=== PATIENT | female | born 1995 | race Two or more races ===

== ENCOUNTER 2016-11-10 23:35 | Emergency (ER) | payer OTHER ==
[~2016-11-10] VITALS: Ht 162.6 cm; Wt 44.0 kg
[2016-11-10] MEDS ORDERED: MIRTAZAPINE15 MG ORAL (23:45)
[2016-11-11] MEDS ORDERED: LORazepam 1mg tab ORAL ONE
[2016-11-11 00:27] VITALS: BP 133/86
[2016-11-11 00:49] LABS: BASOPHILS % (AUTO) 1.2 % (0.0-2.0); LYMPHOCYTES % (AUTO) 18.8 % (20.0-45.0); MEAN CORPUSCULAR HEMOGLOBIN 30.4 PG (27.0-31.0); MEAN CORPUSCULAR HGB CONC 34.6 G/DL (32.0-36.0); MEAN CORPUSCULAR VOLUME 88 FL (80-99); MEAN PLATELET VOLUME 7.9 FL (6.5-10.1); NEUTROPHILS % (AUTO) 71.9 % (45.0-75.0); PLATELET COUNT 347 K/UL (150-450); RED BLOOD COUNT 5.44 M/UL (4.20-5.40); RED CELL DISTRIBUTION WIDTH 10.8 % (11.6-14.8); WHITE BLOOD COUNT 11.3 K/UL (4.8-10.8)
[2016-11-11 00:56] LABS: APPEARANCE,URINE SLIGHTLY CLOUDY; KETONES,URINE 3+ (NEGATIVE); LEUKOCYTE ESTERASE ,URINE 1+ (NEGATIVE); NITRITE,URINE NEGATIVE (NEGATIVE); PH,URINE 6 (4.5-8.0); PROTEIN,URINE 2+ (NEGATIVE); UROBILINOGEN,URINE NORMAL MG/DL (0.0-1.0)
[2016-11-11 01:13] LABS: ACETAMINOPHEN 14 ug/mL (10-30); ALANINE AMINOTRANSFERASE 11 U/L (3-33); ALBUMIN/GLOBULIN RATIO 1.5 (1.0-2.7); ALCOHOL < 10 mg/dL; ANION GAP 24 (5-15); ASPARTATE AMINO TRANSFERASE 34 U/L (5-40); CALCIUM 10.2 mg/dL (8.6-10.2); CARBON DIOXIDE 21 mEQ/L (20-30); CHLORIDE 92 mEQ/L (98-107); CREATININE 0.9 mg/dL (0.5-0.9); GLOMERULAR FILTRATION RATE > 60 mL/min (>60); HEMOLYSIS 28; SODIUM 137 mEQ/L (135-145); TOTAL PROTEIN 9.5 g/dL (6.6-8.7)
[2016-11-11 01:30] VITALS: BP 124/79
[2016-11-11 01:41] LABS: BACTERIA,URINE MODERATE /HPF; RBC,URINE 40-60 /HPF (0 - 2); SQUAMOUS EPITHELIAL CELL,UR MODERATE /LPF (NONE/OCC); WBC,URINE 15-20 /HPF (0 - 2)
[2016-11-11 01:42] LABS: CALCIUM OXALATE CRYSTALS,UR MODERATE /LPF
[2016-11-11] MEDS ORDERED: cefTRIAXone 1 GM in NS 55 ML IVPB ONE (02:30)
[2016-11-11 03:30] VITALS: BP 131/68
--- NOTE | 2016-11-11 03:45 | Emergency Room Report ---
History of Present Illness General Chief Complaint: Behavioral Complaint Source: Patient Present Illness HPI Patient presents after walking from the [place] to this area. She called EMS asking for help with her anxiety. She denies suicidal or homicidal ideation. She does have problems with anxiety and other psychiatric history which is nonspecific about. (Our records state she has been on Remeron.) She is concerned because she has had unprotected sex. She denies any discharge but has slight dysuria. Her last period was 3 days ago. She is asking for Plan B at this time. She denies being raped. She is asking for STD tests. No fevers, rashes, URI sy, CP, SOB, NVD. Allergies: Coded Allergies: No Known Allergies (Unverified , 11/10/16) Patient History Past Medical History: see triage record Social History: Denies: alcohol use, drug use, smoking Social History Narrative homeless Last Menstrual Period: October Reviewed Nursing Documentation: PMH: Agreed, PSxH: Agreed Nursing Documentation-PMH History Of Psychiatric Problem: Yes - ANXIETY Review of Systems All Other Systems: negative except mentioned in HPI Physical Exam Vital Signs Date Time Temp Pulse Resp B/P Pulse Ox O2 Delivery O2 Flow Rate FiO2 11/10/16 23:49 97.9 105 16 133/86 98 Room Air Sp02 EP Interpretation: reviewed, normal General Appearance: well appearing, no apparent distress, GCS 15, thin Head: normocephalic Eyes: bilateral eye PERRL, bilateral eye normal inspection ENT: moist mucus membranes Neck: supple Respiratory: lungs clear, normal breath sounds Cardiovascular #1: regular rate, rhythm Cardiovascular #2: 2+ radial (R) Gastrointestinal: normal inspection, normal bowel sounds, non tender, no mass, non-distended Musculoskeletal: back normal, gait/station normal, normal range of motion Neurologic: alert, oriented x3, grossly normal Psychiatric: no suicidal/homicidal ideation, anxious, other - flat affect, possible minimal delusional Skin: normal inspection, warm/dry Medical Decision Making Diagnostic Impression: Primary Impression: Anxiety Additional Impressions: UTI (urinary tract infection) Qualified Codes: N30.00 - Acute cystitis without hematuria Probable schizoaffective disorder ER Course Patient presents with anxiety and concern over possible STD. DDx: exacerbation of psychiatric illness, STD, UTI, electrolyte abnormality, drug ingestion amongst others. Not suicidal. Focused on evaluation for unprotected sex. Patient agreed to take ativan. Labs remarkable for UTI and tox + barbs. Treated with rocephin and azithromycin. Patient is medically stable and not risk to self or others. She is not delusional. Not need psychiatric admission. Requesting to go to rehab and states no place to go. Plan social service consult in AM. 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 Laboratory Tests Test 11/11/16 00:30 White Blood Count 11.3 K/UL (4.8-10.8) H Red Blood Count 5.44 M/UL (4.20-5.40) H Hemoglobin 16.5 G/DL (12.0-16.0) H Hematocrit 47.8 % (37.0-47.0) H Mean Corpuscular Volume 88 FL (80-99) Mean Corpuscular Hemoglobin 30.4 PG (27.0-31.0) Mean Corpuscular Hemoglobin Concent 34.6 G/DL (32.0-36.0) Red Cell Distribution Width 10.8 % (11.6-14.8) L Platelet Count 347 K/UL (150-450) Mean Platelet Volume 7.9 FL (6.5-10.1) Neutrophils (%) (Auto) 71.9 % (45.0-75.0) Lymphocytes (%) (Auto) 18.8 % (20.0-45.0) L Monocytes (%) (Auto) 8.0 % (1.0-10.0) Eosinophils (%) (Auto) 0.0 % (0.0-3.0) Basophils (%) (Auto) 1.2 % (0.0-2.0) Urine Color Yellow Urine Appearance Slightly cloudy Urine pH 6 (4.5-8.0) Urine Specific [place] 1.020 (1.005-1.035) Urine Protein 2+ (NEGATIVE) H Urine Glucose (UA) Negative (NEGATIVE) Urine Ketones 3+ (NEGATIVE) H Urine Occult Blood 5+ (NEGATIVE) H Urine Nitrite Negative (NEGATIVE) Urine Bilirubin Negative (NEGATIVE) Urine Urobilinogen Normal MG/DL (0.0-1.0) Urine Leukocyte Esterase 1+ (NEGATIVE) H Urine RBC 40-60 /HPF (0 - 2) H Urine WBC 15-20 /HPF (0 - 2) H Urine Squamous Epithelial Cells Moderate /LPF (NONE/OCC) H Urine Calcium Oxalate Crystals Moderate /LPF (NONE) Urine Bacteria Moderate /HPF (NONE) H Urine HCG, Qualitative Negative Sodium Level 137 mEQ/L (135-145) Potassium Level 4.0 mEQ/L (3.4-4.9) Chloride Level 92 mEQ/L (98-107) L Carbon Dioxide Level 21 mEQ/L (20-30) Anion Gap 24 (5-15) H Blood Urea Nitrogen 12 mg/dL (7-23) Creatinine 0.9 mg/dL (0.5-0.9) Estimate Glomerular Filtration Rate > 60 mL/min (>60) Glucose Level 93 mg/dL (74-106) Calcium Level 10.2 mg/dL (8.6-10.2) Total Bilirubin 0.9 mg/dL (0.0-1.2) Aspartate Amino Transferase (AST) 34 U/L (5-40) Alanine Aminotransferase (ALT) 11 U/L (3-33) Alkaline Phosphatase 84 U/L (35-104) Total Creatine Kinase 1004 U/L (26-140) H Total Protein 9.5 g/dL (6.6-8.7) H Albumin 5.7 g/dL (3.5-5.2) H Globulin 3.8 g/dL Albumin/Globulin Ratio 1.5 (1.0-2.7) Salicylates Level < 1 mg/dL (10-30) L Urine Opiates Screen Negative (NEGATIVE) Acetaminophen Level 14 ug/mL (10-30) Urine Barbiturates Screen Positive (NEGATIVE) H Phencyclidine (PCP) Screen Negative (NEGATIVE) Urine Amphetamines Screen Negative (NEGATIVE) Urine Benzodiazepines Screen Negative (NEGATIVE) Urine Cocaine Screen Negative (NEGATIVE) Urine Marijuana (THC) Screen Negative (NEGATIVE) Serum Alcohol < 10 mg/dL Rapid Plasma Reagin Pending Chlamydia trachomatis RNA Pending Neisseria gonorrhoeae RNA Pending Last Vital Signs Date Time Temp Pulse Resp B/P Pulse Ox O2 Delivery O2 Flow Rate FiO2 11/11/16 08:20 98.2 115 16 125/81 96 Room Air Status: improved Disposition: HOME, SELF-CARE Condition: Improved Scripts Nitrofurantoin Monohyd/M-Cryst* (MACROBID 100 MG*) 100 Mg Capsule 100 MG ORAL EVERY 12 HOURS, #14 CAP Prov: Juan Naylor M.D. 11/11/16 Referrals: NOT CHOSEN KARIE/,REFERRING (PCP) Juan Naylor M.D. Nov 11, 2016 03:45
[2016-11-11] MEDS ORDERED: Azithromycin 250mg tab ORAL ONE (04:00)
[2016-11-11] MEDS ORDERED: NITROFURANTOIN100 M2 ORAL (06:46)
[2016-11-11 08:20] VITALS: BP 125/81
== END 2016-11-11 08:20 | disposition home or self-care (01) ==
LOC: EDBD 23:35 → EMR 23:49
DX: F41.9 Anxiety disorder, unspecified (principal); N30.00 Acute cystitis without hematuria; Z59.0 Homelessness
CPT/HCPCS: 36415; 80053; 80300; 80329; 81003; 81025; 82550; 85025; 86592; 87086; 87491; 87590; 96360; 99284; J0696; Q0144